=== PATIENT | male | born 1985 | race Caucasian/White ===

== ENCOUNTER 2016-12-14 16:43 | Emergency (ER) | payer OTHER ==
[~2016-12-14] VITALS: Ht 180.3 cm; Wt 150.0 kg
[2016-12-14 16:45] VITALS: TEMP 98.2
[2016-12-14] MEDS ORDERED: PRINIVIL10 MG PO (16:48)
[2016-12-14 18:15] VITALS: BP 142/94; PULSE 76
== END 2016-12-14 18:15 | disposition home or self-care (01) ==
LOC: COL.ER 16:43
DX: R07.89 Other chest pain (principal); I10 Essential (primary) hypertension